=== PATIENT | female | born 1990 | race Caucasian/White ===

== ENCOUNTER 2016-07-30 09:46 | Emergency (ER) | payer OTHER ==
[2016-07-30 12:11] LABS: HEMOGLOBIN 12.1 gm/dl (12.3-15.3); RED BLOOD COUNT 4.08 M/UL (4.00-5.10); WHITE BLOOD COUNT 16.2 K/UL (4.5-11.0)
[2016-07-30 12:34] LABS: BUN/CREATININE RATIO 10 (0-10)
== END 2016-07-30 14:05 | disposition home or self-care (01) ==
LOC: ER1 09:46
PROVIDERS: Emergency Medicine
DX: N12 Tubulo-interstitial nephritis, not specified as acute or chronic (principal); F17.210 Nicotine dependence, cigarettes, uncomplicated
CPT/HCPCS: 36415; 80053; 81001; 84703; 85025; 87040; 96374; 96375; 99283; J0696; J2405; J7050